=== PATIENT | female | born 1975 | race Caucasian/White ===

== ENCOUNTER → 2019-01-22 | Outpatient (CLI) | payer OTHER ==
[~2019-01-22] MED LIST: ACYCLOVIR 400400 MG PO; ANTI DIARRHEAL; CLONAZEPAM 1 MG1 M1 PO; IMITREX 50 MG T50 MG PO; LOPERAMIDE 2 MG2 M1 PO; MOBIC15 MG PO; NAPROSYN500 MG PO; NEURONTIN 300300 M1; NORCO 5-325 TA1 EACH PO; OMEPRAZOLE40 MG PO; PREDNISONE50 MG PO; REMERON15 M2 PO; SYMBICORT160 MCG/4. INH; TRAMADOL 50 MG50 MG PO; VENTOLIN HFA 1818 GM INH; ZOFRAN ODT4 MG PO; ZOLOFT100 MG
== END ==
LOC: MRI 09:39
PROVIDERS: Psychiatry & Neurology Neurology
DX: R51 Headache (principal); M25.50 Pain in unspecified joint; R53.83 Other fatigue; R29.818 Other symptoms and signs involving the nervous system; R27.9 Unspecified lack of coordination; K29.30 Chronic superficial gastritis without bleeding